=== PATIENT | female | born 1950 | race Caucasian/White ===

== ENCOUNTER → 2017-02-01 | Outpatient (CLI) | payer OTHER ==
[~2017-02-01] MED LIST: CALCIUM 600 +1 EAC1 PO; CENTRUM SILVER1 EAC1 PO; FOSAMAX 70 MG T70 M1 PO; PREMARIN0.625 MG PO; PROVERA2.5 MG PO; SYNTHROID112 MCG PO
== END ==
LOC: RAD 08:53
DX: Z12.31 Encounter for screening mammogram for malignant neoplasm of breast (principal)

== ENCOUNTER → 2018-08-12 | Outpatient (CLI) | payer OTHER | LOC: RAD 14:01 | DX: Z12.31 Encounter for screening mammogram for malignant neoplasm of breast (principal) ==

== ENCOUNTER → 2020-04-14 | Outpatient (CLI) | payer OTHER | LOC: RAD 11:23 | PROVIDERS: ATTEND Obstetrics & Gynecology | DX: Z12.31 Encounter for screening mammogram for malignant neoplasm of breast (principal) ==

== ENCOUNTER → 2020-04-19 | Outpatient (CLI) | payer OTHER ==
[~2020-04-19] MED LIST changes: -FOSAMAX 70 MG T70 M1 PO; +FOSAMAX 70 MG T70 MG PO; +NORCO 10-325 T1 EACH PO; +SYNTHROID112 MC1 PO; -SYNTHROID112 MCG PO
== END ==
LOC: RAD 10:24
PROVIDERS: ATTEND Surgery
DX: R92.1 Mammographic calcification found on diagnostic imaging of breast (principal)

== ENCOUNTER → 2020-04-22 | Outpatient (CLI) | payer OTHER ==
[~2020-04-22] MED LIST changes: -NORCO 10-325 T1 EACH PO
== END ==
LOC: LAB 11:23
PROVIDERS: ATTEND Surgery
DX: Z01.812 Encounter for preprocedural laboratory examination (principal); Z20.822 Contact with and (suspected) exposure to COVID-19

== ENCOUNTER 2020-04-27 09:44 | Day surgery (SDC) | payer OTHER ==
[~2020-04-27] VITALS: Ht 167.6 cm; Wt 45.4 kg
[2020-04-27 10:16] LABS: HEMATOCRIT 42.4 % (37.0-47.0); HEMOGLOBIN 13.8 gm/dL (12.0-15.0)
[2020-04-27 10:44] VITALS: BP 146/91
--- NOTE | 2020-04-27 10:53 | EKG ---
[address] [address] ELECTROCARDIOGRAM REPORT Name: RAUL SANCHEZ Room #: [facility]-[address] [place] [address]..#: [id number] Admission: 04/27/20 Attend Phys: Iron Hardin MD Discharge: Date of : 50 Report #: [id number] [facility] Test Date: 2020-04-27 Test Time: 10:31:55 Pat Name: RAUL SANCHEZ Department: Room: 150 3 Gender: F Senior Mobile Developer: Raya : 1950 Requested By: Iron Hardin Order Number: [id number] : Pedro Sosa Measurements Intervals [place] Rate: 57 P: 0 KS: 136 QRS: -36 QRSD: 86 T: 59 QT: 459 QTc: 447 Interpretive Statements Sinus rhythm Atrial premature complex Probable left atrial enlargement Left axis deviation Compared to ECG 05/24/1999 16:46:26 Atrial premature complex(es) now present Left-axis deviation now present Sinus bradycardia no longer present T-wave abnormality no longer present Electronically Signed On 04-27-2020 10:53:27 [employer] by Pedro Sosa [email or web address] <ELECTRONICALLY SIGNED> By: Pedro Sosa MD, FAC 04/27/20 1053 1031 1031 Pedro Sosa MD, [facility] /EPI
[2020-04-27] MEDS ORDERED: NORCO 10-325 T1 EACH PO (14:22)
[2020-04-27 14:28] VITALS: BP 146/91
--- NOTE | 2020-04-29 14:11 | O ---
[facility] [address] [place] [address] OPERATIVE REPORT Name: RAUL SANCHEZ Room #: DEP [facility].#: [id number] Admission: 04/27/20 Attend Phys: Iron Hardin MD Discharge: 04/27/20 Date of : 50 Report #: [id number] THIS REPORT FOR: cc: Brnadon Cabrera MD, Michael J. MD Chu, Peter Y. MD ~ PREOPERATIVE DIAGNOSIS: Cluster microcalcification in bilateral breast. These are not amenable to stereotactic breast biopsy due to the patient's small breast size. POSTOPERATIVE DIAGNOSIS: Cluster microcalcification in bilateral breast. These are not amenable to stereotactic breast biopsy due to the patient's small breast size. PROCEDURES PERFORMED: Bilateral breast biopsy with preop needle ____ bilaterally. ANESTHESIA: General with LMA. SURGEON: Iron Hardin MD COMPLICATIONS: None. ESTIMATED BLOOD LOSS: 10 mL. PROCEDURE NOTE: With the patient under general anesthesia with LMA tube, bilateral breasts were prepped and draped in sterile fashion. Discussion was carried out with haz tech regarding placement of the needle and then confirming that the location with the preoperative imaging. Local anesthetic of 0.25% Marcaine plain was injected in the left breast around the needle site. A 3 cm incision was made surrounding the needle. After dissecting through the skin and subcutaneous tissue, the needle was free from the skin and subcutaneous tissue. Dissection down into the breast tissue, which was not very deep, was performed. At this point, the breast tissue was then dissected and removed around the needle. Approximately 1 cm wide tissue all around the needle was excised. The breast tissue was able to be lifted out of the breast without difficulty once it was free. Dissection was then carried posteriorly. The posterior dissection showed the wire tip at the dissection site. I did go back and removed a little more of the posterior tissue, but this is sitting right above the pectoralis fascia, which I can see. Specimen was sent for mammography. The specimen mammogram did show microcalcifications that were targeted being removed. Irrigation was performed, hemostasis obtained. The subcutaneous tissue was then brought together with a 4-0 Vicryl. Skin was closed with 5-0 PDS running subcuticular fashion. This area was then covered up. Gloves were changed. The right side will be performed. [address] [address] OPERATIVE REPORT Name: RAUL SANCHEZ Nga Room #: DEP [facility] M.R.#: [id number] Admission: 04/27/20 Attend Phys: Iron Hardin MD Discharge: 04/27/20 Date of : 50 Report #: [id number] Right side was then performed. The needle comes from a lateral to medial direction. A 2.5 cm incision was made surrounding the needle and once the needle was free from the skin and subcutaneous tissue, the breast tissue was then excised surrounding the needle. Again, about 1 cm wide breast tissue was removed surrounding the needle. This is essentially all of the lateral tissue of the breast, i.e., the tail of the breast. This was then carried out more medially. The dissection was then completed. A good specimen was obtained around the needle tract. Specimen mammogram did show successful removal of the calcifications that were targeted. No bleeding was identified. The subcutaneous tissue was closed with 4-0 Vicryl. Skin was closed with 5-0 PDS. Dermabond was used. A fluffy gauze was placed over the surgical site and Op-Site was used for dressing. The patient tolerated the procedure well and was taken to recovery room. <ELECTRONICALLY SIGNED> By: Iron Hardin MD 04/29/20 1411 1235 1249 Iron Hardin MD /nt
--- NOTE | 2020-05-02 13:07 | PATH ---
[facility] [place] [address] [place] [address] PATHOLOGY RPT PROCEDURE Name: BERTHA SANCHEZ Room #: DEP [facility]..#: [id number] Admission: 04/27/20 Date of : 50 Discharge: 04/27/20 Report #: [id number] Path Case #: [id number] [facility] Accession Number: [id number] . 01 Material submitted: . PART A: breast - LEFT BREAST BIOPSY. Modifiers: left PART B: breast - RIGHT BREAST BIOPSY. Modifiers: right . 01 Clinical history: . ABNORMAL MAMMOGRAM,CLUSTER MICROCALCIFICATION . 02 Diagnosis: A. Breast, left breast, biopsy: - SCATTERED RARE FOCI OF COLUMNAR CELL HYPERPLASIA WITH ATYPICAL DUCTAL HYPERPLASIA MEASURING APPROXIMATELY 1 MM EACH. - COARSE CALCIFICATIONS IDENTIFIED IN ASSOCIATION WITH COLUMNAR CELL HYPERPLASIA AND ATYPICAL DUCTAL HYPERPLASIA. - Proliferative fibrocystic changes associated with stromal fibrosis, dilated ducts, focal adenosis as well as usual ductal hyperplasia. - Margins of resection free of atypical ductal hyperplasia; closest margin is 1 mm away. . B. Breast, right breast, biopsy: - SCATTERED RARE FOCI OF COLUMNAR CELL HYPERPLASIA WITH ATYPICAL DUCTAL HYPERPLASIA MEASURING APPROXIMATELY 1.5 MM EACH. - COARSE CALCIFICATIONS IDENTIFIED IN ASSOCIATION WITH COLUMNAR CELL HYPERPLASIA AND ATYPICAL DUCTAL HYPERPLASIA. - Proliferative fibrocystic changes associated with stromal fibrosis, dilated ducts, focal adenosis as well as usual ductal hyperplasia. - Margins of resection free of atypical ductal hyperplasia; closest margin is 1 mm away. (IUV:pit 04/29/2020) [facility] 04/29/2020 1303 Local . 02 Comment: Dr. Jhonny Gorman has reviewed instruments sales representative slides (A3, A7, B2, and B4) and concurs with my diagnosis. (IUV:pit 04/29/2020) . 02 Electronically signed: . Juliana Giraldo MD, Pathologist NPI- [id number] . 01 Gross description: . A. Received in formalin labeled "Bertha Sanchez, left breast biopsy" are two portions of yellow-huff breast tissue measuring 2.2 x 1.5 x 1.0 cm and a 3.5 x 3.2 x 1.4 cm. The external surfaces are inked black. The pieces [facility] [address] [place] [address] PATHOLOGY RPT PROCEDURE Name: BERTHA SANCHEZ Room #: DEP [facility] M.[place]#: [id number] Admission: 04/27/20 Date of : 50 Discharge: 04/27/20 Report #: [id number] Path Case #: [id number] are sectioned to reveal huff-white fibrotic cut surfaces. The specimen is submitted entirely as follows: A1-A2 smaller portion A3-A6 larger portion The specimen is removed from the patient at 1314 and placed in formalin at 1345 on 04/27/2020. The specimen is removed from formalin at 2150 on 04/28/2020. . B. Received in formalin labeled "Bertha Sanchez, right breast biopsy" are three portions of yellow-huff breast tissue ranging from 1.2 x 0.8 x 0.5 cm to 3.6 x 3.2 x 1.5 cm. The external surfaces are inked black. The pieces are sectioned to reveal huff-white fibrotic cut surfaces. The specimen is submitted entirely as follows: B1 smaller fragments B2-B7 largest portion The specimen is removed from the patient at 1321 and placed in formalin at 1345 on 04/27/2020. The specimen is removed from formalin at 2150 on 04/28/2020. ([facility]; 04/28/2020) [facility] 04/28/2020 1632 Local . 02 Pathologist provided ICD-10: N60.82, N60.81, N60.11, N60.12, N60.31, N60.32, N60.21, N60.22, N62 . 02 CPT . 274073, 788507 Specimen Comment: A courtesy copy of this report has been sent to [phone] Specimen Comment: Report sent to Performed at: [address], [place] [id number] MD Félix Xavier MD Phone: [phone] Performed at: [address] [id number] MD Juliana Giraldo MD Phone: [phone]
== END 2020-04-27 15:15 | disposition short-term general hospital (02) ==
LOC: TBA 09:44 → OR 09:44
PROVIDERS: ATTEND Surgery
DX: R92.0 Mammographic microcalcification found on diagnostic imaging of breast (principal); N60.82 Other benign mammary dysplasias of left breast; N60.81 Other benign mammary dysplasias of right breast; N60.32 Fibrosclerosis of left breast; N60.31 Fibrosclerosis of right breast; N60.22 Fibroadenosis of left breast; N62 Hypertrophy of breast; N60.21 Fibroadenosis of right breast; E03.9 Hypothyroidism, unspecified; G35 Multiple sclerosis; Z87.891 Personal history of nicotine dependence; Z20.822 Contact with and (suspected) exposure to COVID-19; Z98.890 Other specified postprocedural states; Z79.899 Other long term (current) drug therapy
CPT/HCPCS: 50010; 50101; 50386; 50417; 54118; 56526; 62110; 62900; 70005

== ENCOUNTER → 2020-06-21 | Outpatient (CLI) | payer OTHER ==
[~2020-06-21] MED LIST changes: +NORCO 10-325 T1 EACH PO
== END ==
LOC: CAT 12:53
PROVIDERS: ATTEND Surgery
DX: Z13.6 Encounter for screening for cardiovascular disorders (principal); I25.10 Atherosclerotic heart disease of native coronary artery without angina pectoris

== ENCOUNTER → 2020-07-28 | Outpatient (CLI) | payer OTHER | LOC: SJCVCIMAG 09:15 | PROVIDERS: ATTEND Neuromusculoskeletal Medicine & OMM | DX: I08.1 Rheumatic disorders of both mitral and tricuspid valves (principal); F17.200 Nicotine dependence, unspecified, uncomplicated; Z79.899 Other long term (current) drug therapy ==

== ENCOUNTER → 2020-10-17 | Outpatient (CLI) | payer OTHER | LOC: MRI 13:43 | PROVIDERS: ATTEND Podiatrist Foot & Ankle Surgery | DX: S93.412A Sprain of calcaneofibular ligament of left ankle, initial encounter (principal); S93.492A Sprain of other ligament of left ankle, initial encounter; M25.472 Effusion, left ankle; M25.775 Osteophyte, left foot; M65.272 Calcific tendinitis, left ankle and foot; X58.XXXA Exposure to other specified factors, initial encounter; Y93.89 Activity, other specified; Y92.89 Other specified places as the place of occurrence of the external cause; Y99.8 Other external cause status ==

== ENCOUNTER → 2020-11-07 | Outpatient (CLI) | payer OTHER | LOC: LAB 05:54 | PROVIDERS: ATTEND Student in an Organized Health Care Education/Training Program | DX: Z20.822 Contact with and (suspected) exposure to COVID-19 (principal) ==

== ENCOUNTER → 2020-11-09 | Outpatient (CLI) | payer OTHER ==
[~2020-11-09] VITALS: Ht 167.6 cm; Wt 49.9 kg
--- NOTE | ~2020-11-09 | P ---
[facility] [address] [place] [address] PROCEDURE REPORT Name: RAUL SANCHEZ Room #: REG [facility]#: [id number] Admission: 11/09/20 Attend Phys: Anthony Mcqueen Discharge: Date of : 50 Report #: [id number] THIS REPORT FOR: cc: Alvin Asencio,Anthony Walsh MD ~ cc: Alvin Asencio MD, Iron Hardin MD DATE OF SERVICE: 11/09/2020 PROCEDURE PERFORMED: Colonoscopy. HISTORY OF PRESENT ILLNESS: The patient is a 70-year-old female with a history of polyps, last colonoscopy 5 years ago. No family history of colon cancer. DESCRIPTION OF PROCEDURE: The risks and benefits of the procedure were explained to the patient, those risks including but not limited to bleeding, perforation and the risk of sedation. She understood these risks and gave informed consent. Sedation was given using propofol per anesthesia. Next, a digital rectal exam was initially performed, which was normal. Next, using a standard Olympus colonoscope, the scope was placed in the patient's anus and advanced under direct vision to the cecum. The overall prep was excellent. The cecum and ileocecal valve were normal in appearance. The ascending, transverse, descending, and sigmoid colon were normal. The rectal mucosa was normal. On retroflexion, no abnormalities were noted. The scope was then withdrawn and the procedure terminated. The patient tolerated the procedure well. IMPRESSION: Normal colonoscopy. RECOMMENDATIONS: Repeat colonoscopy in 10 years. Thank you for allowing me to participate in her care. By: [id number] Anthony Villa MD /nt
--- NOTE | ~2020-11-09 | P ---
[facility] [address] [place] [address] PROCEDURE REPORT Name: RAUL SANCHEZ Room #: REG [facility]#: [id number] Admission: 11/09/20 Attend Phys: Anthony Mcqueen Discharge: Date of : 50 Report #: [id number] THIS REPORT FOR: cc: Alvin Asencio,Anthony Walsh MD ~ cc: Alvin Asencio MD, Iron Hardin MD DATE OF SERVICE: 11/09/2020 PROCEDURE PERFORMED: Upper endoscopy with biopsies. HISTORY OF PRESENT ILLNESS: The patient is a 70-year-old female with a history of intermittent heartburn. She denies any dysphagia, nausea, or vomiting. No previous history of upper endoscopy. Plan is for EGD. DESCRIPTION OF PROCEDURE: The risks and benefits of the procedure were explained to the patient, those risks including but not limited to bleeding, perforation, and the risk of sedation. She understood these risks and gave informed consent. Sedation was given using propofol per Anesthesia. Next, using a standard Olympus upper endoscope, the scope was placed in the patient's mouth and advanced under direct vision through the esophagus, stomach and into the second portion of the duodenum. The larynx was normal in appearance. The upper and mid esophagus was normal. At the GE junction, mild grade A erosive esophagitis was noted. Upon entering the stomach, a small hiatal hernia was noted. Overall, the gastric mucosa was normal other than some mild erythema in the gastric antrum. Biopsies were obtained to rule out H. pylori. No evidence of ulcerations or erosions. The pylorus was normal and patent. The duodenal bulb, first and second portion were all normal. The scope was then withdrawn and the procedure terminated. The patient tolerated the procedure well. IMPRESSION: 1. Grade A erosive esophagitis. 2. Small hiatal hernia. 3. Mild antral erythema. 4. Otherwise, normal upper endoscopy. RECOMMENDATIONS: 1. Await biopsy results. 2. Recommend trial of daily PPI therapy. [address] [address] PROCEDURE REPORT Name: RAUL SANCHEZ Room #: REG [facility] [place]#: [id number] Admission: 11/09/20 Attend Phys: Anthony Mcqueen Discharge: Date of : 50 Report #: [id number] Thank you for allowing me to participate in her care. By: [id number] Anthony Villa MD /nt
--- NOTE | 2020-11-11 12:07 | PATH ---
[facility] [address] [place] [address] PATHOLOGY RPT PROCEDURE Name: BERTHA SANCHEZ Nga Room #: REG [facility] [place].#: [id number] Admission: 11/09/20 Date of : 50 Discharge: Report #: [id number] Path Case #: [id number] [facility] Accession Number: [id number] . 01 Material submitted: . gastrointestinal site - GASTRIC BIOPSY R/O H. PYLORI . 01 Clinical history: . EGD/COLONOSCOPY GERD/HX OF COLON POLYP ESOPHAGITIS/HIATAL HERNIA . 02 Diagnosis: Gastric mucosa, gastric, rule out H. pylori, endoscopic biopsy: - Mild reactive gastropathy. - Negative for intestinal metaplasia or atrophy. - Negative for Helicobacter pylori (properly controlled immunohistochemical stain performed). (IUV:pit; 11/10/2020) QTP 11/10/2020 1207 Local . 02 Electronically signed: . Juliana Giraldo MD, Pathologist NPI- [id number] . 01 Gross description: . The specimen is submitted in formalin, labeled "Bertha Sanchez, gastric biopsy". Received are 4 segments of pale huff tissue ranging in size from 0.3 to 0.6 cm in maximum dimensions. The specimen is submitted in cassette A1. ([facility]; 11/09/2020) NRI/NRI 11/09/2020 1819 Local . 02 Pathologist provided ICD-10: K31.9 . 02 CPT . 972098, D26231 Specimen Comment: A courtesy copy of this report has been sent to [phone] Specimen Comment: [phone], Specimen Comment: Report sent to , DR CA / DR ALEJANDRO Specimen Comment: A duplicate report has been generated due to demographic updates. Performed at: [address] [place] [address] [facility] [address], [place] [id number] [address] [address] PATHOLOGY RPT PROCEDURE Name: BERTHA SANCHEZ Room #: REG [facility] Myron.R.#: [id number] Admission: 11/09/20 Date of : 50 Discharge: Report #: [id number] Path Case #: [id number] MD Félix Xavier MD Phone: [phone] Performed at: [address] [facility] [id number] MD Juliana Giraldo MD Phone: [phone]
== END | disposition home or self-care (01) ==
LOC: GI 08:01
PROVIDERS: ATTEND Specialist
DX: Z12.11 Encounter for screening for malignant neoplasm of colon (principal); Z86.010 Personal history of colon polyps; K22.10 Ulcer of esophagus without bleeding; K31.9 Disease of stomach and duodenum, unspecified; K44.9 Diaphragmatic hernia without obstruction or gangrene; R12 Heartburn; E03.9 Hypothyroidism, unspecified; G35 Multiple sclerosis; E05.00 Thyrotoxicosis with diffuse goiter without thyrotoxic crisis or storm; Z98.890 Other specified postprocedural states; Z79.899 Other long term (current) drug therapy; Z87.891 Personal history of nicotine dependence
CPT/HCPCS: 62110; 62900

== ENCOUNTER → 2021-03-30 | Outpatient (CLI) | payer OTHER | LOC: SJCVC 13:32 | PROVIDERS: ATTEND Internal Medicine Cardiovascular Disease | DX: R94.31 Abnormal electrocardiogram [ECG] [EKG] (principal); I49.3 Ventricular premature depolarization; I25.2 Old myocardial infarction; G35 Multiple sclerosis; R93.1 Abnormal findings on diagnostic imaging of heart and coronary circulation; E78.5 Hyperlipidemia, unspecified; R06.00 Dyspnea, unspecified; Z87.891 Personal history of nicotine dependence; Z72.89 Other problems related to lifestyle; Z79.899 Other long term (current) drug therapy; Z82.49 Family history of ischemic heart disease and other diseases of the circulatory system ==